=== PATIENT | female | born 1950 | race Caucasian/White ===

== ENCOUNTER → 2017-05-22 16:54 | Outpatient (CLI) | payer MEDICARE, BC | END | disposition home or self-care (01) | LOC: D.MAMMO 01-17 09:00 | DX: Z12.31 Encounter for screening mammogram for malignant neoplasm of breast (principal) ==

== ENCOUNTER → 2017-06-06 19:07 | Outpatient (CLI) | payer MEDICARE, BC | END | disposition home or self-care (01) | LOC: D.MAMMO 09:00 | DX: R92.8 Other abnormal and inconclusive findings on diagnostic imaging of breast (principal) ==

== ENCOUNTER 2018-04-03 13:23 | Outpatient (CLI) | payer MEDICARE, BC ==
[~2018-04-03] VITALS: Ht 162.6 cm; Wt 54.5 kg
[2018-04-03 14:18] VITALS: BP 166/73; Ht 162.6 cm; Wt 54.5 kg
== END 2018-04-03 14:45 | disposition home or self-care (01) ==
LOC: D.OPS 13:23
DX: M81.0 Age-related osteoporosis without current pathological fracture (principal); Z01.812 Encounter for preprocedural laboratory examination

== ENCOUNTER → 2018-04-10 17:05 | Outpatient (CLI) | payer MEDICARE, BC ==
[2018-04-03 14:18] VITALS: BMI 20.6
== END | disposition home or self-care (01) ==
LOC: D.MAMMO 13:15
DX: Z12.31 Encounter for screening mammogram for malignant neoplasm of breast (principal)

== ENCOUNTER 2018-10-18 13:47 | Outpatient (CLI) | payer MEDICARE, BC ==
[~2018-10-18] VITALS: Ht 162.6 cm; Wt 53.2 kg
[2018-10-18 14:08] VITALS: BP 136/73; Ht 162.6 cm; Wt 53.2 kg
== END 2018-10-18 14:42 | disposition home or self-care (01) ==
LOC: D.OPS 13:47
PROVIDERS: ATTEND Family Medicine
DX: M81.0 Age-related osteoporosis without current pathological fracture (principal)

== ENCOUNTER 2019-11-25 11:45 | Outpatient (CLI) | payer MEDICARE, BC ==
[2018-10-18 14:08] VITALS: BMI 20.1
== END 2019-11-25 14:00 | disposition home or self-care (01) ==
LOC: D.MAMMO 11:45
PROVIDERS: ATTEND Nurse Practitioner Family
DX: Z12.31 Encounter for screening mammogram for malignant neoplasm of breast (principal)